=== PATIENT | male | born 1960 | race Caucasian/White ===

== ENCOUNTER → 2016-09-27 | Outpatient (CLI) | payer OTHER ==
--- NOTE | 2016-09-28 00:53 | US ---
EXAMINATION TYPE: US carotid duplex BILAT DATE OF EXAM: 09/27/2016 3:24 PM COMPARISON: NONE CLINICAL HISTORY: 56-year-old male R42 Dizziness and giddiness. TECHNIQUE: Carotid duplex ultrasound examination. In direct upper criteria was utilized. FINDINGS: Very mild atherosclerotic changes are noted at the bifurcations. EXAM MEASUREMENTS: RIGHT: Peak Systolic Velocity (PSV) cm/sec ----- Right CCA: 104.0 ----- Right ICA: 82.3 ----- Right ECA: 133.4 ICA/CCA ratio: 0.8 RIGHT: End Diastole cm/sec ----- Right CCA: 37.2 ----- Right ICA: 31.4 ----- Right ECA: 31.7 LEFT: Peak Systolic Velocity (PSV) cm/sec ----- Left CCA: 110.6 ----- Left ICA: 96.0 ----- Left ECA: 128.6 ICA/CCA ratio: 0.9 LEFT: End Diastole cm/sec ----- Left CCA: 40.5 ----- Left ICA: 45.8 ----- Left ECA: 41.3 VERTEBRALS (direction of flow): Right Vertebral: Antegrade Left Vertebral: Antegrade Submarine Worker notes: Elevated velocities: right mid ECA and left mid ECA, no significant stenosis seen. IMPRESSION: No hemodynamically significant stenosis appreciated in either internal carotid artery. Criteria for Assigning % of Stenosis / Diameter reduction (Estimation based on the indirect measurements of the internal carotid artery velocities (ICA PSV). 1. Normal (no stenosis)=ICA PSV < 125 cm/s: ratio < 2.0: ICA EDV<40 cm/s. 2. Less than 50% stenosis=ICA PSV < 125 cm/s: ratio < 2.0: ICA EDV<40 cm/s. 3. 50 to 69% stenosis=ICA PSV of 125 to 230 cm/s: ration 2.0 ? 4.0: ICA EDV 40-100 cm/s. 4. Greater than 70% stenosis to near occlusion= ICA PSV > 230 cm/s: ratio > 4.0: ICA EDV > 100 cm/s. 5. Near occlusion= ICA PSV velocities may be low or undetectable: variable ratio and ICA EDV. 6. Total occlusion=unable to detect flow.
== END | disposition home or self-care (01) ==
LOC: RADUSWWP 15:02
PROVIDERS: ATTEND Family Medicine
DX: R42 Dizziness and giddiness (principal)
CPT/HCPCS: 93880

== ENCOUNTER → 2019-02-15 | Outpatient (CLI) | payer OTHER ==
--- NOTE | 2019-02-16 15:47 | CT ---
EXAMINATION TYPE: CT chest wo/w con DATE OF EXAM: 02/15/2019 COMPARISON: None HISTORY: Lump to right axillary region CT DLP: 561.5 mGycm, Automated exposure control for dose reduction was used. CONTRAST: Performed injected with 100 mL of Isovue 300. TECHNIQUE: Axial images were obtained at 5 mm thick sections. Reconstructed images are reviewed on Sightly computer in the coronal plane. FINDINGS: Portion of the thyroid visualized is normal. There is a 2.7 x 1.9 cm lobular density posterior lateral superior segment right lower lobe. Series 7 image 37. No enlarged mediastinal or hilar adenopathy is evident. The ascending aorta diameter at the level o f the main pulmonary artery is 3.4 cm. The main pulmonary artery diameter at the bifurcation is 2.[address] sections are obtained through the upper abdomen. Abdomen is essentially unremarkable. IMPRESSIONS: 1. Suspicious lobular density superior segment right lower lobe. PET CT recommended for neoplasm work up.
== END | disposition home or self-care (01) ==
LOC: RADCTMAIN 16:03
PROVIDERS: ATTEND Physician Assistant Medical
DX: J98.4 Other disorders of lung (principal); R22.31 Localized swelling, mass and lump, right upper limb
CPT/HCPCS: 71270; Q9967

== ENCOUNTER → 2019-03-17 | Outpatient (CLI) | payer OTHER ==
--- NOTE | 2019-03-20 07:03 | PE ---
EXAMINATION TYPE: PET CT fusion skull to thigh DATE OF EXAM: 03/17/2019 COMPARISON: Chest CT February 15, 2019. HISTORY: Abnormal CT, solitary pulmonary nodule. TECHNIQUE: Following the intravenous administration of 12.92 mCi of F-18 FDG, whole body images are performed from the skull base to the midthigh. Images are reviewed on the computer in the coronal, a xial, and sagittal planes. Reconstructed rotating images are created on independent workstation and reviewed on the computer. A noncontrast CT is performed in conjunction with the PET scan. SCAN: Initial Scan FINDINGS: SKULL BASE AND NECK: No areas of suspicious hypermetabolic uptake. CHEST, MEDIASTINUM, AND HILAR REGION: Corresponding to recent CT there is lobulated nodule superior a spect right lower lobe image 106 measuring 2.3 x 1.9 cm, max SUV is 4.89. No additional areas of suspicious hypermetabolic uptake in either lung or in the mediastinum. ABDOMEN AND PELVIS: No areas of suspicious hypermetabolic uptake. No adrenal masses. OSSEOUS STRUCTURES: No areas of suspicious hypermetabolic uptake. OTHER CT: There is anterior upper extremity intramuscular lesion of predominantly fat density with so me soft tissue linear density measuring 5.7 x 4.0 cm axial image 47 there is ametabolic, suspect intr amuscular lipoma or other nonaggressive etiology. Local mass effect due to size of lesion noted. Cons ider orthopedic referral. There is 2.8 cm simple appearing exophytic thin-walled cyst laterally upper pole left kidney axial im age 89. Some facet arthropathy lower lumbar spine is present. IMPRESSION: There is hypermetabolic uptake in the superior right lower lobe nodule worrisome for albino gnancy. No suspicious adenopathy. No metastatic malignancy noted. TNM STAGING - [id number] AJCC STAGING -STAGE I
== END ==
LOC: RADPETMAIN 11:41
PROVIDERS: ATTEND Physician Assistant Medical
DX: R91.8 Other nonspecific abnormal finding of lung field (principal)
CPT/HCPCS: 78815; A9552

== ENCOUNTER 2019-05-04 09:49 | Day surgery (SDC) | payer OTHER ==
[2019-05-03 11:23] VITALS: BMI 25.9
[~2019-05-04 09:49] MED LIST: ALBUTEROL NEB (CONC) 2.5 MG/0.5 ML INHALATION ONE; DEXAMETHASONE SOD PHOSPHATE 10 MG/ML 1 ML VIAL IV ONE; HYDROmorphone 0.5 MG/0.5 ML SYRINGE IVP PRN; LACTATED RINGERS 1,000 ML IV SCH; LIDOCAINE 2% (PF) 20 MG/ML 5 ML VIAL INHALATION ONE; LIDOCAINE VISCOUS 300 MG/15 ML CUP MUCOUS MEM ONE; MIDAZOLAM 2 MG/2 ML VIAL IV PRN; ONDANSETRON 4 MG/2 ML VIAL IVP ONE; SCOPOLAMINE 1.5MG/72HR PATCH TRANSDERM ONE; SODIUM CHLORIDE 0.9% 1,000 ML IV SCH
--- NOTE | 2019-05-04 11:22 | CT ---
EXAMINATION TYPE: CT Chest giulia Macdonald Protocol DATE OF EXAM: 05/04/2019 COMPARISON: PET/CT dated 03/17/2019 HISTORY: pre navigational bronch CT DLP: [address] of the chest was performed with lung and mediastinal window settings submitted. The la ck of contrast limits evaluation of the vascular, mediastinal and parenchymal structures including th e upper abdomen. LUNGS: Right lower lobe pulmonary mass is redemonstrated and measures 3 cm x 2.1 cm. There is surroun ding spiculation as well as pleural extension. No additional lung nodules or masses are seen. No evid ence of pleural effusion. No pleural effusion. No CT evidence of interstitial lung disease. MEDIASTINUM/KHANH: Thoracic aorta is of normal caliber with limited evaluation given lack of contrast . The heart is not enlarged. No evidence for mediastinal mass. No lymph nodes greater than 1cm. UPPER ABDOMEN: No significant abnormality is seen. OTHER: No significant other abnormality. IMPRESSION: 1. Right lower lobe pulmonary mass is redemonstrated and felt to reflect malignancy until proven oth erwise. No evidence for adenopathy within the hilar or mediastinal regions.
[2019-05-04] MEDS ORDERED: MIDAZOLAM 2 MG/2 ML VIAL ONE (12:12)
[2019-05-04] MEDS ORDERED: PROPOFOL 10 MG/ML 20 ML VIAL IV ONE (12:12)
[2019-05-04] MEDS ORDERED: SUCCINYLCHOLINE CHLORIDE 100 MG/5 ML SYR IV ONE (12:12)
[2019-05-04] MEDS ORDERED: fentaNYL (PF) 50 MCG/ML 2 ML AMP ONE (12:12)
[2019-05-04] MEDS ORDERED: PHENYLEPHRINE-0.9% NACL SYG 1 MG/10 ML SYRINGE ONE (12:12)
[2019-05-04] MEDS ORDERED: LIDOCAINE 1% INJ 10MG/ML (20 ML MDV) ONE (12:12)
[2019-05-04] MEDS ORDERED: LACTATED RINGERS 1,000 ML IV ONE (13:13)
[2019-05-04 13:38] VITALS: TEMP 96.8
--- NOTE | 2019-05-04 13:54 | XR ---
EXAMINATION TYPE: XR chest 1V portable DATE OF EXAM: 05/04/2019 COMPARISON: CT chest 05/04/2019 INDICATION: Status post right lower lobe biopsy TECHNIQUE: Single frontal view of the chest is obtained. FINDINGS: The heart size is normal. The pulmonary vasculature is normal. Right lower lobe infiltrate is present. No pneumothorax is evident. IMPRESSION: 1. Right lower lobe infiltrate. No pneumothorax post biopsy is identified
[2019-05-04 15:17] VITALS: BP 100/62; PULSE 78; RESP 20
[2019-05-04 16:46] LABS: Appearance,BF Bloody; Color,BF Red; Nucleated Cells, Body Fluid 2100 /uL; RBC, Body Fluid 302000 /uL
--- NOTE | 2019-05-04 16:47 | OP ---
OPERATIVE REPORT OPERATIVE PROCEDURE: Navigational bronchoscopy, multiple transbronchial biopsies of the right lower lobe mass, brushings of right lower lobe mass and fine-needle aspiration of right lower lobe mass. PREOPERATIVE DIAGNOSIS: Right lower lobe mass. POSTOPERATIVE DIAGNOSIS: Right lower lobe mass. ANESTHESIA USED: Patient was given general anesthesia and he was on mechanical ventilation during the procedure. PROCEDURE DESCRIPTION: The patient was prepared according to the [facility] navigational bronchoscopy protocol. The patient had his [facility] navigational CT scan of the chest earlier today prior to the procedure. We performed lung mappings and discussed with the patient the plan prior to the procedure. The patient was brought into endoscopy room #1. He was intubated by HAT TRIMMER, placed on mechanical ventilation, and thorough airway examination was done while he was intubated. Right upper lobe, right upper lobe, right lower lobe, left upper lobe lingula and left lower lobe were all examined and there was no evidence of any endobronchial tumors. Then calibration was done by calibrating to the main neal and calibrating to the left secondary neal. Further calibration was also done by going down to the right lower lobe distal segments. Then, using the navigational protocol and using the navigational monitoring, I was able to enter the superior segment of the right lower lobe and navigate all the way down with the bronchoscope and with the biopsy forceps until the right lower lobe mass was reached peripherally. Multiple transbronchial biopsies of the mass were done. Then brushings of the mass were done; and these were all done under navigational guidance. Then multiple fine-needle aspirations were done of the right lower lobe mass. Procedure was well tolerated. There was minimal amount of bleeding/negligible. The patient tolerated the procedure well. Patient will have a postoperative chest x-ray and he will likely be discharged home in the next couple of hours. He will follow up with me in one week. Again, no evidence of any immediate complications. Procedure was well tolerated. MMODL / IJN: [id number] /
[2019-05-04 17:10] LABS: Mononuclear WBC,Body Fluid 38 %; Polynuclear WBC,Body Fluid 62 %; Total Cells Counted,Body Fluid 100
== END 2019-05-04 15:19 | disposition home or self-care (01) ==
LOC: ORWHC2ENDO 09:49
PROVIDERS: ATTEND Internal Medicine
DX: R91.8 Other nonspecific abnormal finding of lung field (principal); J60 Coalworker's pneumoconiosis; M48.00 Spinal stenosis, site unspecified; M50.30 Other cervical disc degeneration, unspecified cervical region; M15.9 Polyosteoarthritis, unspecified; Z79.1 Long term (current) use of non-steroidal anti-inflammatories (NSAID); Z79.899 Other long term (current) drug therapy; F17.210 Nicotine dependence, cigarettes, uncomplicated; G89.29 Other chronic pain; Z98.1 Arthrodesis status
CPT/HCPCS: 88104; 88108; 88305; 88173; 89050; 87070; 87205; 71045; 71250; 31629; 31623; 31627; J2250; J1100; J2405; J2001; J3010; J2370; J0330; J2704; 31624; 31625

== ENCOUNTER → 2019-06-06 | Outpatient (CLI) | payer OTHER ==
[~2019-06-06] MED LIST changes: -ALBUTEROL NEB (CONC) 2.5 MG/0.5 ML INHALATION ONE; -DEXAMETHASONE SOD PHOSPHATE 10 MG/ML 1 ML VIAL IV ONE; -HYDROmorphone 0.5 MG/0.5 ML SYRINGE IVP PRN; -LACTATED RINGERS 1,000 ML IV SCH; -LIDOCAINE 2% (PF) 20 MG/ML 5 ML VIAL INHALATION ONE; -LIDOCAINE VISCOUS 300 MG/15 ML CUP MUCOUS MEM ONE; -MIDAZOLAM 2 MG/2 ML VIAL IV PRN; -ONDANSETRON 4 MG/2 ML VIAL IVP ONE; +REGADENOSON 0.4 MG/5 ML SYRINGE IV ONE; -SCOPOLAMINE 1.5MG/72HR PATCH TRANSDERM ONE; -SODIUM CHLORIDE 0.9% 1,000 ML IV SCH
--- NOTE | 2019-06-06 11:05 | NM ---
EXAMINATION TYPE: NM stress lexiscan cardiolite DATE OF EXAM: 06/06/2019 COMPARISON: NONE HISTORY: Chest pain TECHNIQUE: After the intravenous administration of 10.89 mCi Tc 99m Sestamibi - Cardiolite resting S PECT images acquired 45 minutes post injection. The patient received 0.4mg Lexiscan, 26.5 mCi Tc 99m Sestamibi - Stress images obtained [address] injection FINDINGS: Review of stress and rest SPECT images demonstrates no distinct perfusion abnormality. Gated analysi s shows normal wall motion with an estimated left ventricular ejection fraction of 66 %. IMPRESSION: No scintigraphic evidence for reversible ischemia.
--- NOTE | 2019-06-06 13:22 | EST ---
EXERCISE STRESS DATE OF SERVICE: 06/06/2019 AGE: 58 SEX: Male HT: 67" WT: 176 pounds PROTOCOL: Lexiscan Cardiolite STAGE: DURATION OF EXERCISE: HEART RATE REST: 94 BLOOD PRESSURE REST: 159/89 MAXIMUM HEART RATE ACHIEVED: 92 MAXIMUM BLOOD PRESSURE: 140/82 85% MPHR: 138 100% MPHR: 162 METS: INDICATIONS: Pre-op. CLINICAL INFORMATION: The patient was given Lexiscan injection over a period of 10 seconds. A peak heart rate of 92 was achieved. Maximum blood pressure of 140/82 mmHg was noted. Resting EKG shows normal sinus rhythm with normal VA interval and QRS duration and normal ST-T waves. No ST-segment depression suggestive of ischemia was noted. The results of the nuclear study will follow. LIGIA / ASH: [id number] /
== END | disposition home or self-care (01) ==
LOC: RADNMMAIN 08:02
PROVIDERS: ATTEND Thoracic Surgery (Cardiothoracic Vascular Surgery)
DX: Z01.818 Encounter for other preprocedural examination (principal)
CPT/HCPCS: 93017; 78452; A9500

== ENCOUNTER → 2019-07-20 | Outpatient (CLI) | payer OTHER ==
[2019-07-20 14:50] LABS: Basophils % (A) 0 %; Eosinophils # (A) 0.1 k/uL (0-0.7); Eosinophils % (A) 1 %; HCT 43.8 % (39.0-53.0); HGB 14.4 gm/dL (13.0-17.5); Lymphocytes # (A) 2.3 k/uL (1.0-4.8); Lymphocytes % (A) 32 %; MCH 28.1 pg (25.0-35.0); MCV 85.3 fL (80.0-100.0); Mean Platelet Volume 7.1; Monocytes # (A) 0.4 k/uL (0-1.0); Monocytes % (A) 5 %; Neutrophils # (A) 4.3 k/uL (1.3-7.7); Neutrophils % (A) 59 %; Platelet Count 273 k/uL (150-450); RBC 5.13 m/uL (4.30-5.90); RDW 13.4 % (11.5-15.5); WBC 7.2 k/uL (3.8-10.6)
[2019-07-20 14:51] LABS: Appearance,Urine Clear (Clear); Bilirubin,Urine Negative (Negative); Blood,Urine Negative (Negative); Color,Urine Light Yellow; Glucose,Urine (UA) Negative (Negative); Ketones,Urine Negative (Negative); Leukocyte Esterase,Urine Negative (Negative); Nitrite,Urine Negative (Negative); Protein,Urine Negative (Negative); Specific Gravity,Urine 1.004 (1.001-1.035); Urobilinogen,Urine <2.0 mg/dL (<2.0)
[2019-07-20 14:57] LABS: African American GFR (CKD) >90 (>60 ml/min/1.73 sqM); Anion Gap 9 mmol/L; Blood Urea Nitrogen 6 mg/dL (9-20); Carbon Dioxide 25 mmol/L (22-30); Chloride 100 mmol/L (98-107); Glucose 88 mg/dL (74-99); Non-African American GFR(CKD) >90 (>60 ml/min/1.73 sqM); Partial Thromboplastin Time 25.5 sec (22.0-30.0); Potassium 4.4 mmol/L (3.5-5.1); Prothrombin Time 10.1 sec (9.0-12.0); Sodium 134 mmol/L (137-145)
== END | disposition home or self-care (01) ==
LOC: LABPAT 13:13
PROVIDERS: ATTEND Family Medicine
DX: Z01.812 Encounter for preprocedural laboratory examination (principal); C34.31 Malignant neoplasm of lower lobe, right bronchus or lung
CPT/HCPCS: 36415; 80051; 81003; 82565; 82947; 84520; 85025; 85610; 85730; 87086

== ENCOUNTER 2019-07-26 09:19 | Inpatient (IN) | payer OTHER ==
[2019-07-24 16:44] VITALS: BMI 26.7
[~2019-07-26 09:19] MED LIST changes: +DEXAMETHASONE SOD PHOSPHATE 10 MG/ML 1 ML VIAL IV ONE; +LACTATED RINGERS 1,000 ML IV SCH; +LIDOCAINE 1% (10MG/ML) FOR IV START INTRADERMA PRN; +ONDANSETRON 4 MG/2 ML VIAL IVP ONE; -REGADENOSON 0.4 MG/5 ML SYRINGE IV ONE
[2019-07-26] MEDS ORDERED: MIDAZOLAM 2 MG/2 ML VIAL IV ONE (10:40)
[2019-07-26] MEDS ORDERED: fentaNYL (PF) 50 MCG/ML 2 ML AMP IV ONE (10:40)
[2019-07-26] MEDS ORDERED: ROCURONIUM BROMIDE 10 MG/ML 5 ML VIAL IV ONE (11:35)
[2019-07-26] MEDS ORDERED: HYDROmorphone (PF) 1 MG/ML ONE (11:35)
[2019-07-26] MEDS ORDERED: GLYCOPYRROLATE 0.2 MG/ML 2 ML VIAL ONE (11:35)
[2019-07-26] MEDS ORDERED: METOPROLOL TARTRATE 5 MG/5 ML VIAL IVP ONE (11:35)
[2019-07-26] MEDS ORDERED: fentaNYL (PF) 50 MCG/ML 2 ML AMP ONE (11:35)
[2019-07-26] MEDS ORDERED: KETAMINE 10 MG/ML 20 ML VIAL ONE (11:35)
[2019-07-26] MEDS ORDERED: LIDOCAINE 1% INJ 10MG/ML (20 ML MDV) ONE (11:35)
[2019-07-26] MEDS ORDERED: SUCCINYLCHOLINE CHLORIDE 100 MG/5 ML SYR IV ONE (11:35)
[2019-07-26] MEDS ORDERED: MIDAZOLAM 2 MG/2 ML VIAL ONE (11:35)
[2019-07-26] MEDS ORDERED: NEOSTIGMINE 1 MG/ML 10 ML VIAL ONE (11:35)
[2019-07-26] MEDS ORDERED: PROPOFOL 10 MG/ML 20 ML VIAL IV ONE (11:35)
[2019-07-26] MEDS ORDERED: BUPIVACAINE (PF) 0.5% 30 ML VIAL SQ ONE ×2 (12:23)
[2019-07-26] MEDS ORDERED: LACTATED RINGERS 1,000 ML IV ONE (13:06)
--- NOTE | 2019-07-26 14:58 | P.OP ---
Date of Procedure: 07/26/19 Preoperative Diagnosis: Lung mass right lower lobe Postoperative Diagnosis: Same, grossly consistent with carcinoma Procedure(s) Performed: Robotic-assisted thoracoscopic right lower lobectomy with mediastinal lymph node dissection Anesthesia: JOSSELYN Surgeon: Tommy Bruno Functional Consultant #1: Byron Jacobson Estimated Blood Loss (ml): 50 IV fluids (ml): 1,000 Urine output (ml): 500 Pathology: other (Right lower lobe for bronchial margin frozen section,\; lymph node stations R4, level 7, R8, R9, R 10, R 11) Condition: stable Disposition: PACU Indications for Procedure: 58-year-old male with stellate mass in the right lower lobe. This was positive by PET scan. There was no evidence of metastasis by CT or PET criteria. Bronchoscopy and SHEILA were performed. Lymph nodes were negative. Diagnostic biopsy of the tumor was nondiagnostic. Patient was recommended to undergo lobectomy. He was given the choice of CT follow-up which was not recommended versus wedge resection versus peripheral needle biopsy. He opted for primary surgery with lobectomy. Elective surgery was scheduled at the patient's convenience. Operative Findings: Pleural space was free. The fissures were nearly complete. There was a partial fissure between the superior segment and basal segments of the right lower lobe. The tumor was present in the lower lobe portion of the lung adjacent to this segmental fissure. The tumor puckered the overlying pleura of the segmental fissure. Mediastinal and hilar lymphadenopathy was present with marketed anthracotic adenopathy and significant vascularity of the lymph nodes. Frozen section of bronchial margin returned negative. Pathology agreed that the mass in the lung was certainly a lung malignancy although they did not do a frozen section. Description of Procedure: The patient was brought to the operating room, placed supine on the operating table, anesthetized and intubated with a double-lumen endotracheal tube. Tube w as positioned with fiberoptic bronchoscopy and secured. No endobronchial lesions were noted. Patient was turned in the left lateral decubitus position and appropriately positioned for robotic lobectomy. The right chest was sterilely prepped and draped. 4 port incisions were made for robotic ports. A 8 mm port was placed in the anterior axillary line in the ninth interspace. A 12 mm ports were placed anteriorly posterior to this in the eighth and ninth interspace respectively. Second 8 mm port was placed in the fifth interspace posteriorly. The robot was docked. Pleural robotic inspection of the chest was performed. Some dissection was carried out in the greater fissure but we could not complete the fissure robotically at this stage. Inferior pulmonary ligament was taken down. R9 lymph nodes were encountered resected and sent for permanent section. Dissection was carried up onto the inferior pulmonary vein. This was encircled and ligated and divided with a robotic stapler. Dissection was continued posteriorly and the R8 and R7 lymph nodes were resected. Dissection was now carried anterior to the bronchus intermedius and the interval between the takeoff of the upper lobe bronchus and bronchus intermedius was dissected out. There were lymph nodes present here but they were difficult to resect. Was decided to move down inferiorly. Dissection was carried on the distal bronchus intermedius and the bifurcation between the middle lobe bronchus and basilar bronchi was identified. Was a large vascularized lymph node present in this bifurcation. Dissection was carried around the lower lobe bronchial and we encircled it successfully. It was then stapled off with a robotic green stapler being careful to maintain the bronchus intermedius and middle lobe bronchial patency. 2 firings of the stapler were required. We now continued dissection and removed a large number of R 11 lymph nodes. This exposed the pulmonary artery leading to the lower lobe. The superior segmental branch was identified. The middle lobe artery was identified. The main trunk of the lower lobe artery was encircled distal to the middle lobe branch and proximal to the superior segme ntal branch. This was then ligated and divided with a single firing of a robotic vascular stapler. We completed the dissection of the hilar lymph nodes at this time and then completed the fissures with multiple firings of the robotic blue stapler. Lobectomy specimen was then placed in an Endo Catch bag. Dissection was carried up at the superior aspect of the hilum and the R 10 and R4 lymph nodes were resected. At this point the robot was undocked. A working port was enlarged and the specimen was brought through the enlarged working port incision in the Endo Catch bag. Was examined on the back table with findings as noted above and sent for frozen section of the bronchial margin which returned negative. The chest was irrigated out with a liter of warm water. The lung was inflated under direct vision with the water and the chest and no significant air leaks were noted. Water was suctioned free and a 28-Angolan chest tube was placed posterior apically through separate anterior stab incision. This was secured with an 0 Ethibond suture. The lung was then again inflated under thoracoscopic visualization being certain to completely eliminate only atelectasis. Scope was removed and the incisions were closed with layers of Vicryl suture. Rib blocks were performed at the level of the incisions posteriorly with half percent Marcaine. Band-Aid dressings were applied and the patient was turned supine and extubated and transferred to recovery in stable condition.
[2019-07-26] MEDS: HYDROmorphone 0.5 MG/0.5 ML SYRINGE IVP PRN ×3 (15:13→16:14)
--- NOTE | 2019-07-26 15:30 | XR ---
EXAMINATION TYPE: XR chest 1V portable DATE OF EXAM: 07/26/2019 COMPARISON: NONE HISTORY: Right-sided lobectomy. TECHNIQUE: Single frontal view of the chest is obtained. FINDINGS: Patient is status post right-sided lobectomy with right thoracostomy tube placed terminati ng along the medial aspect of the upper mediastinum. No residual pneumothorax seen. Slight hemidiaphr agm elevation of the right from volume loss. Subcutaneous emphysema noted along the inferior right ch est wall. Left lung has minimal left basal atelectasis. Cervical fusion device noted. IMPRESSION: Right hemithorax loss and subcutaneous emphysema from recent right lobectomy. Thoracosto my tube in place with no residual pneumothorax.
[2019-07-26] MEDS ORDERED: IPRATROPIUM-ALBUTEROL 3 ML NEB IH PRN (16:26)
[2019-07-26] MEDS ORDERED: DEXTROSE 5%-0.45% NACL 1,000 ML IV SCH (16:26)
[2019-07-26] MEDS ORDERED: ACETAMINOPHEN TAB 500 MG TAB PO PRN (16:26)
[2019-07-26] MEDS ORDERED: ONDANSETRON 4 MG/2 ML VIAL IVP PRN (16:26)
[2019-07-26 16:58] LABS: Glucose,Whole Blood 144 mg/dL (75-99)
[2019-07-26] MEDS: IPRATROPIUM-ALBUTEROL 3 ML NEB IH SCH ×2 (17:13→18:59)
[2019-07-26] MEDS: GABAPENTIN 300 MG CAP PO SCH ×2 (17:17→21:31)
[2019-07-26] MEDS: traMADol 50 MG TAB PO SCH ×2 (17:17→21:32)
[2019-07-26] MEDS: KETOROLAC 30 MG/ML 1 ML VIAL IVP SCH ×2 (17:19→21:32)
[2019-07-26] MEDS: HEPARIN SODIUM,PORCINE 5,000 UNIT/ML 1 ML VIAL SQ SCH (17:19)
--- NOTE | 2019-07-26 18:08 | P.CNPUL ---
History of Present Illness Consult date: 07/26/19 Reason for consult: lung mass Chief complaint: Robotically assisted right lower lobe resection History of present illness: This is a 58-year-old male patient with MS in the right lower lobe. The mass was positive for a CAT scan that was done on outpatient basis. He had no evidence of any metastases based on PET scan.. Bronchoscopy was done and it biopsy was nondiagnostic. Based on that, the patient was brought in for a right lower lobe resection/lobectomy. The patient underwent the surgery without any major complications. Currently is postop day #0. This was a robotic-assisted thoracoscopy and right lower lobe resection with lymph node dissection. Currently his chest x-ray shows no evidence of any pneumothorax. The right- sided chest tube is in a good location. There is no evidence of any air leak. Output from the chest tube has been minimal in the order of 150 mL since he arrived from the operating room. His pain is under good control. His pulse ox is 97% on oxygen at 2 L per minute nasal cannula. Note that the patient had a 2.3 x 1.9 cm right lower lobe mass with a possibility of 4.89 his primary function test was consistent with only a mild obstructive defect. Review of Systems Constitutional: Denies chills, Denies fever Eyes: denies as per HPI, denies blurred vision, denies bulging eye, denies decreased vision, denies diplopia, denies discharge, denies dry eye, denies irritation, denies itching, denies pain, denies photophobia, denies loss of peripheral vision, denies loss of vision, denies tunnel vision/blind spots Ears: deny: decreased hearing, ear discharge, earache, tinnitus Ears, nose, mouth and throat: Denies headache, Denies sore throat Cardiovascular: Reports as per HPI Respiratory: Reports as per HPI Gastrointestinal: Reports as per HPI Genitourinary: Reports as per HPI Musculoskeletal: Reports as per HPI Musculoskeletal: absent: ankle pain, ankle stiffness, ankle swelling, as per HPI, elbow pain, elbow stiffness, elbow swelling, foot pain, foot stiffness, foot swelling, hand pain, hand stiffness, hand swelling, hip pain, hip stiffness, hip swelling, knee pain, knee stiffness, knee swelling, shoulder pain, shoulder stiffness, shoulder swelling, wrist pain, wrist stiffness, wrist swelling Integumentary: Reports as per HPI Neurological: Reports as per HPI Psychiatric: Reports as per HPI Endocrine: Reports as per HPI Hematologic/Lymphatic: Reports as per HPI Allergic/Immunologic: Reports as per HPI Past Medical History Past Medical History: Musculoskeletal Disorder, Osteoarthritis (OA) Additional Past Medical History / Comment(s): spot on right lung, neuropathy & numbness in extremities, bulging lumbar discs History of Any Multi-Drug Resistant Organisms: None Reported Additional Past Surgical History / Comment(s): cervical fusion, bronchoscopy Past Anesthesia/Blood Transfusion Reactions: Previous Problems w/ Anesthesia Additional Past Anesthesia/Blood Transfusion Reaction / Comment(s): was a bit slow to wake up after neck surgery Smoking Status: Current every day smoker Medications and Allergies Home Medications Medication Instructions Recorded Confirmed Type Amitriptyline HCl [Elavil] 25 mg PO BID 05/03/19 07/24/19 History Gabapentin [Neurontin] 900 mg PO TID 05/03/19 07/24/19 History Ibuprofen [Motrin] 800 mg PO Q8H PRN 07/24/19 07/24/19 History Allergies Allergy/AdvReac Type Severity Reaction Status Date / Time bee venom protein (honey bee) Allergy Swelling Verified 07/24/19 16:39 Physical Exam Vitals: Vital Signs Temp Pulse Resp BP Pulse Ox 07/26/19 17:15 88 14 140/93 100 07/26/19 16:50 88 14 07/26/19 16:40 97.5 F L 80 14 136/85 100 07/26/19 16:15 72 16 127/64 92 L 07/26/19 16:00 74 16 157/84 92 L 07/26/19 15:31 72 16 151/81 100 07/26/19 15:15 71 16 151/81 97 07/26/19 15:00 79 16 169/78 100 07/26/19 14:50 98.1 F 75 14 164/89 100 07/26/19 09:51 97 F L 69 20 141/80 97 Intake and Output 07/26/19 07/26/19 07/26/19 06:59 14:59 22:59 Intake Total 1350 570 Output Total 355 166 Balance 995 404 Intake: IV 1350 10 Invasive Line 1 10 Oral 560 Output: Chest Tube Drainage 66 Chest Tube Right Lateral 66 Chest Urine 325 100 Uretheral ([place]) 100 Estimated Blood Loss 30 Other: Voiding Method Indwelling Catheter Weight 72.9 kg The patient appeared well nourished and normally developed. Vital signs as documented. Head exam is unremarkable. No scleral icterus or corneal arcus noted. Neck is without jugular venous distension, thyromegaly, or carotid bruits. Carotid upstrokes are brisk bilaterally. Lungs are diminished breath on the right compared to the left and the chest tube are in place without any evidence of a leak. Cardiac exam reveals the PMI to be normally sized and situated. Rhythm is regular. First and second heart sounds normal. No murmurs, rubs or gallops. Abdominal exam reveals normal bowel sounds, no masses, no organomegaly and no aortic enlargement. Extremities are nonedematous and both femoral and pedal pulses are normal.Examination of the skin revealed no evidence of significant rashes, suspicious appearing nevi or other concerning lesions. Neurologically awake and alert and is no focal neurological deficit. Results - Laboratory Findings Abnormal lab findings: Abnormal Labs 07/26/19 16:42 POC Glucose (mg/dL) 144 H - Diagnostic Findings Chest x-ray: image reviewed Assessment and Plan Plan: 1 Right lower lobe mass close robotic-assisted right lower lobe resection with mediastinal lymph node dissection, postoperative day #0. The patient is calm and comfortable and the patient is under good control and the patient has a right-sided chest tube in place. No evidence of any air leak and the patient is hemodynamically stable at this point in time. Consider underlying lung cancer 2 spinal stenosis 3 osteoarthritis Plan Provide the patient incentive spirometer Pain control with a combination of Toradol and Ultram Daily chest x-rays Resume home medications we'll continue to follow.
[2019-07-26] MEDS: AMITRIPTYLINE HCL 25 MG TAB PO SCH (21:31)
[2019-07-27] MEDS: HEPARIN SODIUM,PORCINE 5,000 UNIT/ML 1 ML VIAL SQ SCH ×4 (02:16→22:10)
[2019-07-27] MEDS: KETOROLAC 30 MG/ML 1 ML VIAL IVP SCH ×4 (05:44→22:09)
[2019-07-27] MEDS: traMADol 50 MG TAB PO SCH ×4 (05:46→22:08)
[2019-07-27] MEDS: PANTOPRAZOLE 40 MG TABLET PO SCH (05:48)
--- NOTE | 2019-07-27 07:38 | XR ---
EXAMINATION TYPE: XR chest 1V DATE OF EXAM: 07/27/2019 COMPARISON: 07/26/2019 HISTORY: Status post lobectomy. Follow-up exam. TECHNIQUE: Single frontal view of the chest is obtained. FINDINGS: Right-sided thoracostomy tube again projects over the mediastinal border. Subcutaneous emp hysema remains along the lateral chest wall. No residual pneumothorax seen. Right-sided volume loss i s again noted. Scattered areas of atelectasis are present. Stable cardiac mediastinal silhouette. IMPRESSION: Similar placement of the right thoracostomy tube with no residual pneumothorax seen.
[2019-07-27 07:49] LABS: African American GFR (CKD) >90 (>60 ml/min/1.73 sqM); Anion Gap 9 mmol/L; Blood Urea Nitrogen 14 mg/dL (9-20); Calcium 8.9 mg/dL (8.4-10.2); Carbon Dioxide 24 mmol/L (22-30); Chloride 99 mmol/L (98-107); Glucose 94 mg/dL (74-99); Non-African American GFR(CKD) 89 (>60 ml/min/1.73 sqM); Potassium 4.1 mmol/L (3.5-5.1); Sodium 132 mmol/L (137-145)
[2019-07-27 07:52] LABS: Basophils % (A) 0 %; Eosinophils # (A) 0.1 k/uL (0-0.7); Eosinophils % (A) 1 %; Lymphocytes # (A) 1.9 k/uL (1.0-4.8); Lymphocytes % (A) 16 %; MCH 28.3 pg (25.0-35.0); MCHC 33.2 g/dL (31.0-37.0); MCV 85.4 fL (80.0-100.0); Mean Platelet Volume 7.2; Monocytes # (A) 0.5 k/uL (0-1.0); Monocytes % (A) 4 %; Neutrophils % (A) 77 %; Platelet Count 237 k/uL (150-450); RBC 4.57 m/uL (4.30-5.90); RDW 13.8 % (11.5-15.5); WBC 11.6 k/uL (3.8-10.6)
[2019-07-27] MEDS: IPRATROPIUM-ALBUTEROL 3 ML NEB IH SCH ×4 (08:17→20:10)
[2019-07-27] MEDS: AMITRIPTYLINE HCL 25 MG TAB PO SCH ×2 (08:22→20:33)
[2019-07-27] MEDS: GABAPENTIN 300 MG CAP PO SCH ×3 (08:22→20:33)
--- NOTE | 2019-07-27 13:36 | P.PN ---
Subjective Progress Note Date: 07/27/19 Principal diagnosis: Lung mass right lower lobe, consistent with carcinoma. Previous medical history of current tobacco dependence, COPD, osteoarthritis, and cervical disc disease with previous cervical fusion. POD #1 Robotic-assisted thoracoscopic right lower lobectomy with mediastinal lymph node dissection The patient is currently sitting up in a recliner in no acute distress. States post surgical pain is well controlled with current medication regimen. Denies shortness of breath. States he has been ambulatory in the hallway without difficulty. No new concerns. Objective - Vital Signs Vital signs: Vital Signs Temp 97.7 F 07/27/19 11:00 Pulse 93 07/27/19 11:54 Resp 18 07/27/19 11:27 BP 107/66 07/27/19 11:00 Pulse Ox 94 L 07/27/19 11:00 Intake & Output 07/26/19 07/27/19 07/27/19 18:59 06:59 18:59 Intake Total 2150 320 497 Output Total 551 740 244 Balance 1599 -420 253 Weight 72.9 kg 71.5 kg Intake: IV 1360 320 20 Invasive Line 1 10 320 20 Oral 790 477 Output: Chest Tube Drainage 96 140 244 Chest Tube Right Lateral 96 140 244 Chest Urine 425 600 Uretheral (De La Torre) 100 600 Estimated Blood Loss 30 Other: Voiding Method Indwelling Catheter Indwelling Catheter Urinal - Constitutional General appearance: Present: cooperative, no acute distress - Respiratory Details: Lungs sounds diminished bilaterally. Respirations even, nonlabored. Currently on room air with oxygen saturation 94%. Able to achieve 1000 mL on his incentive spirometry. Strong cough. Right pleural chest tube present to tammy erseal, 80 mL of thin serosanguineous drainage overnight 500 mL since surgery, positive intermittent air leak present. - Cardiovascular Details: S1, S2 present. Regular rate and rhythm, sinus rhythm on telemetry. Palpable peripheral pulses bilaterally. No edema present. No calf pain or tenderness noted. - Gastrointestinal Gastrointestinal Comment(s): Abdomen soft, nontender, nondistended. Hypoactive bowel sounds present 4 quadrants. Tolerating diet. - Genitourinary Genitourinary Comment(s): De La Torre discontinued this morning, patient has voided - Integumentary Integumentary Comment(s): Skin is warm and dry with evidence of good perfusion. Right chest tube site covered with dry intact dressing. - Neurologic Neurologic: Present: CNII-XII intact - Musculoskeletal Musculoskeletal: Present: gait normal, strength equal bilaterally - Psychiatric Psychiatric: Present: A&O x's 3, appropriate affect, intact judgment & insight - Allied health notes Allied health notes reviewed: nursing - Labs CBC & Chem 7: 07/27/19 07:04 07/27/19 07:04 Labs: Abnormal Lab Results - Last 24 Hours (Table) 07/26/19 07/27/19 07/27/19 Range/Units 16:42 07:04 07:04 WBC 11.6 H (3.8-10.6) k/uL Neutrophils # 9.0 H (1.3-7.7) k/uL Sodium 132 L (137-145) mmol/L POC Glucose (mg/dL) 144 H (75-99) mg/dL - Imaging and Cardiology Chest x-ray: report reviewed, image reviewed Assessment and Plan Assessment: 1. Lung mass right lower lobe, consistent with carcinoma, status post robotic- assisted thoracoscopic right lower lobectomy 2. Current tobacco dependence 3. COPD 4. Osteoarthritis 5. Cervical disk disease status post-cervical fusion Plan: 1. Continue right pleural chest tube to water seal for another 24 hours. Monitor for resolution of air leak. 2. Will review daily x-rays. 3. Encourage incentive spirometry 10 times every hour while awake. 4. Increase activity, encourage ambulation 5. Bronchodilators per pulmonology 6. GI/DVT prophylaxis 7. Pain control with current medication regimen 8. More recommendations to follow Time with Patient: Greater than 30
--- NOTE | 2019-07-27 14:46 | P.PN ---
Subjective Progress Note Date: 07/27/19 This is a 58-year-old male patient with MS in the right lower lobe. The mass was positive for a CAT scan that was done on outpatient basis. He had no evidence of any metastases based on PET scan.. Bronchoscopy was done and it biopsy was nondiagnostic. Based on that, the patient was brought in for a right lower lobe resection/lobectomy. The patient underwent the surgery without any major complications. Currently is postop day #0. This was a robotic-assisted thoracoscopy and right lower lobe resection with lymph node dissection. Currently his chest x-ray shows no evidence of any pneumothorax. The right- sided chest tube is in a good location. There is no evidence of any air leak. Output from the chest tube has been minimal in the order of 150 mL since he arrived from the operating room. His pain is under good control. His pulse ox is 97% on oxygen at 2 L per minute nasal cannula. Note that the patient had a 2.3 x 1.9 cm right lower lobe mass with a possibility of 4.89 his primary function test was consistent with only a mild obstructive defect. On today's evaluation of 07/27/2019, the patient is looking well. The patient has no specific complaints. The patient is sitting up on a chair. He is postop day #1 following a robotic-assisted thoracoscopic right lower lobe resection. Chest tube is in place. There is no evidence of any air leak. Chest x-ray from today shows no evidence of any pneumothorax. No pulmonary infiltration. The output from the chest tube has been around 80 mL over the past 8 hours and 500 mL since surgery. There is intermittent air leak still noted. Objective - Vital Signs Vital signs: Vital Signs Temp 97.7 F 07/27/19 11:00 Pulse 93 07/27/19 11:54 Resp 18 07/27/19 11:27 BP 107/66 07/27/19 11:00 Pulse Ox 94 L 07/27/19 11:00 Intake & Output 07/26/19 07/27/19 07/27/19 18:59 06:59 18:59 Intake Total 2150 320 737 Output Total 551 740 244 Balance 1599 -420 493 Weight 72.9 kg 71.5 kg Intake: IV 1360 320 20 Invasive Line 1 10 320 20 Oral 790 717 Output: Chest Tube Drainage 96 140 244 Chest Tube Right Lateral 96 140 244 Chest Urine 425 600 Uretheral (De La Torre) 100 600 Estimated Blood Loss 30 Other: Voiding Method Indwelling Catheter Indwelling Catheter Urinal - Exam The patient appeared well nourished and normally developed. Vital signs as documented. Head exam is unremarkable. No scleral icterus or corneal arcus noted. Neck is without jugular venous distension, thyromegaly, or carotid bruits. Carotid upstrokes are brisk bilaterally. Lungs are diminished breath on the right compared to the left and the chest tube are in place intermittent air leak. Cardiac exam reveals the PMI to be normally sized and situated. Rhythm is regular. First and second heart sounds normal. No murmurs, rubs or gallops. Abdominal exam reveals normal bowel sounds, no masses, no organomegaly and no aortic enlargement. Extremities are nonedematous and both femoral and pedal pulses are normal.Examination of the skin revealed no evidence of significant rashes, suspicious appearing nevi or other concerning lesions. Neurologically awake and alert and is no focal neurological deficit. - Labs CBC & Chem 7: 07/27/19 07:04 07/27/19 07:04 Labs: Abnormal Lab Results - Last 24 Hours (Table) 07/26/19 07/27/19 07/27/19 Range/Units 16:42 07:04 07:04 WBC 11.6 H (3.8-10.6) k/uL Neutrophils # 9.0 H (1.3-7.7) k/uL Sodium 132 L (137-145) mmol/L POC Glucose (mg/dL) 144 H (75-99) mg/dL Assessment and Plan Plan: 1 Right lower lobe mass close robotic-assisted right lower lobe resection with mediastinal lymph node dissection, postoperative day #1. The patient is calm and comfortable and the patient is under good control and the patient has a right-sided chest tube in place. The chest x-ray from today shows no evidence of any air leak and the chest tube is in a good location. The patient is not having any significant respiratory distress. His pulling more than 1000 on his incentive spirometer. No other significant events overnight. He is able to sit up on a recliner. Consider underlying lung cancer 2 spinal stenosis 3 osteoarthritis Plan Blood work was reviewed and hemoglobin is at 13.0. Provide the patient incentive spirometer Pain control with a combination of Toradol and Ultram Daily chest x-rays Resume home medications we'll continue to follow.
[2019-07-28] MEDS: traMADol 50 MG TAB PO SCH ×2 (06:13→12:46)
[2019-07-28] MEDS: KETOROLAC 30 MG/ML 1 ML VIAL IVP SCH ×3 (06:13→17:04)
[2019-07-28] MEDS: PANTOPRAZOLE 40 MG TABLET PO SCH (06:15)
[2019-07-28 07:17] LABS: HCT 39.9 % (39.0-53.0); MCHC 32.6 g/dL (31.0-37.0); MCV 85.9 fL (80.0-100.0); Mean Platelet Volume 7.2; Platelet Count 203 k/uL (150-450); RBC 4.64 m/uL (4.30-5.90); RDW 13.8 % (11.5-15.5); WBC 13.6 k/uL (3.8-10.6)
[2019-07-28 07:27] LABS: African American GFR (CKD) >90 (>60 ml/min/1.73 sqM); Anion Gap 10 mmol/L; Blood Urea Nitrogen 18 mg/dL (9-20); Calcium 8.9 mg/dL (8.4-10.2); Carbon Dioxide 22 mmol/L (22-30); Chloride 98 mmol/L (98-107); Glucose 117 mg/dL (74-99); Non-African American GFR(CKD) >90 (>60 ml/min/1.73 sqM); Potassium 4.4 mmol/L (3.5-5.1); Sodium 130 mmol/L (137-145)
--- NOTE | 2019-07-28 08:18 | XR ---
EXAMINATION TYPE: XR chest 2V DATE OF EXAM: 07/28/2019 COMPARISON: 07/27/2019 HISTORY: Status post right lower lobectomy TECHNIQUE: Frontal and lateral views of the chest are obtained. FINDINGS: Increasing left basilar linear atelectasis is seen. Increasing right basilar airspace dise ase. Right thoracostomy tube has been repositioned but appears overall appropriately placed. Right-si ded chest wall subcutaneous emphysema has increased. Cervical fusion device is seen. Cardiomediastina l silhouette is nonenlarged. Thorax seen. IMPRESSION: Increasing left basilar atelectasis and right basilar airspace disease, possible atelect asis as well or developing pneumonia.
[2019-07-28] MEDS: IPRATROPIUM-ALBUTEROL 3 ML NEB IH SCH ×4 (08:22→19:25)
[2019-07-28] MEDS: AMITRIPTYLINE HCL 25 MG TAB PO SCH ×2 (09:45→20:25)
[2019-07-28] MEDS: GABAPENTIN 300 MG CAP PO SCH ×3 (09:45→22:03)
[2019-07-28] MEDS: HEPARIN SODIUM,PORCINE 5,000 UNIT/ML 1 ML VIAL SQ SCH ×2 (09:45→17:04)
--- NOTE | 2019-07-28 13:30 | P.PN ---
Subjective Progress Note Date: 07/28/19 Principal diagnosis: Lung mass right lower lobe, consistent with carcinoma. Past medical history significant for current tobacco dependence, COPD, osteoarthritis, posttraumatic stress disorder from the and cervical disc disease with previous cervical fusion. POD #1 Robotic-assisted thoracoscopic right lower lobectomy with mediastinal lymph node dissection. The patient is laying in bed on the cardiac stepdown unit. He is in no acute distress. Currently denies any complaints of pain or shortness of breath, although he does have some slight discomfort when taking deep breaths or coughing. Oxygen saturations are 97% on room air and he is achieving 500-750 mL on his incentive spirometry with encouragement. He reports he did not sleep very well last night and was sitting up to bedside chair for most of the night. Right pleural chest tube remains in place to water seal. No air leak is present. Draining thin serosanguineous drainage with 100 mL output in the last 8 hours, and 320 mL output in the last 24 hours. He has been ambulating in the cardiac stepdown unit hallway with minimal assistance from nursing staff. Surgical pathology results remain pending. Objective - Vital Signs Vital signs: Vital Signs Temp 98.8 F 07/28/19 04:00 Pulse 88 07/28/19 04:00 Resp 18 07/28/19 04:00 BP 116/82 07/28/19 04:00 Pulse Ox 97 07/28/19 04:00 Intake & Output 07/27/19 07/28/19 07/28/19 18:59 06:59 18:59 Intake Total 1007 30 Output Total 344 375 Balance 663 -345 Weight 81.4 kg Intake: IV 30 30 Invasive Line 1 30 30 Oral 977 Output: Chest Tube Drainage 344 100 Chest Tube Right Lateral 344 100 Chest Urine 275 Other: Voiding Method Urinal Urinal - Constitutional General appearance: Present: average body habitus, cooperative, no acute di stress - Respiratory Details: Lung sounds diminished to the bilateral bases right greater than left. Respirations are symmetrical and nonlabored. Oxygen saturation is 97% on room air. Achieving 500-750 mL on his incentive spirometry. Right pleural chest t ube remains in place to water seal draining thin serosanguineous drainage. No air leak is present. 100 mL output in the last 8 hours, 320 mL output in the last 24 hours. - Cardiovascular Details: Regular rhythm and rate. S1 and S2 present, negative for S3, gallop or murmur. No edema present. Knee-high sequential compression devices in place his bilater al lower extremities. - Gastrointestinal Gastrointestinal Comment(s): Abdomen is soft, nontender and nondistended. Active bowel sounds present in all 4 abdominal quadrants. No guarding or rigidity. No organomegaly appreciated. Tolerating oral intake. Passing flatus. - Genitourinary Genitourinary Comment(s): Voiding clear yellow urine. - Integumentary Integumentary Comment(s): Skin is warm and dry. No clubbing or cyanosis is present. Right chest incisions clean, dry and approximated. Dressings are clean and dry. - Neurologic Neurologic: Present: CNII-XII intact - Musculoskeletal Musculoskeletal: Present: gait normal, generalized weakness, strength equal bilaterally - Psychiatric Psychiatric: Present: A&O x's 3, appropriate affect, intact judgment & insight - Allied health notes Allied health notes reviewed: nursing - Labs CBC & Chem 7: 07/28/19 06:50 07/28/19 06:50 Labs: Abnormal Lab Results - Last 24 Hours (Table) 07/28/19 07/28/19 Range/Units 06:50 06:50 WBC 13.6 H (3.8-10.6) k/uL Sodium 130 L (137-145) mmol/L Glucose 117 H (74-99) mg/dL - Imaging and Cardiology Chest x-ray: report reviewed, image reviewed Assessment and Plan Assessment: 1. Lung mass right lower lobe, consistent with carcinoma, status post robotic- assisted thoracoscopic right lower lobectomy 2. Current tobacco dependence 3. COPD 4. Osteoarthritis 5. Cervical disk disease status post-cervical fusion 6. Posttraumatic stress syndrome from the Plan: 1. Remove right pleural chest tube. 2. Repeat CXR in AM. If stable, will dc to home tomorrow 3. Encourage incentive spirometry 10 times every hour while awake. 4. Increase activity, encourage ambulation as tolerated. 5. Bronchodilators per pulmonology management. 6. Continue GI/DVT prophylaxis. 7. Pain control with current medication regimen. 8. Continue to encourage importance of smoking cessation. 9. Continue to follow up on surgical pathology results. 10. More recommendations to follow based on patient's clinical course Time with Patient: Greater than 30
[2019-07-28] MEDS ORDERED: traMADol 50 MG TAB PO PRN (14:24)
--- NOTE | 2019-07-28 16:10 | P.PN ---
Subjective Progress Note Date: 07/28/19 Principal diagnosis: Right lower lobe resection with mediastinal lymph node dissection. Postoperative day #2 The patient is seen today 07/28/2019 in follow-up on the selective care unit. He is currently sitting up in the bedside. Awake and alert in no acute distress. Maintaining O2 saturation in the low 90s on room air. Afebrile. Hemodynamically stable. White count 13.6. Hemoglobin 13.0. Creatinine 0.77. His pain is well controlled. He is working well with the incentive spirometer. Chest x-ray shows increasing left basilar atelectasis and right basilar airspace disease. Suspect atelectasis versus pneumonia. Objective - Vital Signs Vital signs: Vital Signs Temp 98.2 F 07/28/19 12:00 Pulse 101 H 07/28/19 16:03 Resp 18 07/28/19 16:03 BP 161/88 07/28/19 12:00 Pulse Ox 90 L 07/28/19 12:00 Intake & Output 07/27/19 07/28/19 07/28/19 18:59 06:59 18:59 Intake Total 1007 30 330 Output Total 344 375 Balance 663 -345 330 Weight 81.4 kg Intake: IV 30 30 Invasive Line 1 30 30 Oral 977 330 Output: Chest Tube Drainage 344 100 Chest Tube Right Lateral 344 100 Chest Urine 275 Other: Voiding Method Urinal Urinal Urinal # Voids 3 - Exam Very pleasant 58-year-old male patient appeared well nourished and normally developed. Vital signs as documented. Head exam is unremarkable. No scleral icterus or corneal arcus noted. Neck is without jugular venous distension, thyromegaly, or carotid bruits. Carotid upstrokes are brisk bilaterally. Lungs are diminished breath on the right compared to the left, with few scattered rhonchi and the chest tube are in place. Cardiac exam reveals the PMI to be normally sized and situated. Rhythm is regular. First and second heart sounds normal. No murmurs, rubs or gallops. Abdominal exam reveals normal bowel sounds, no masses, no organomegaly and no aortic enlargement. Extremities are nonedematous and both femoral and pedal pulses are normal.Examination of the skin revealed no evidence of significant rashes, suspicious appearing nevi or other concerning lesions. Neurologically awake and alert and is no focal neur ological deficit. - Labs CBC & Chem 7: 03/14/20 06:50 07/28/19 06:50 Labs: Abnormal Lab Results - Last 24 Hours (Table) 07/28/19 07/28/19 Range/Units 06:50 06:50 WBC 13.6 H (3.8-10.6) k/uL Sodium 130 L (137-145) mmol/L Glucose 117 H (74-99) mg/dL Assessment and Plan Assessment: 1 Right lower lobe mass close robotic-assisted right lower lobe resection with mediastinal lymph node dissection, postoperative day #2. The patient is calm and comfortable and the patient is under good control and the patient has a right-sided chest tube in place. The chest x-ray from today shows no evidence of any air leak and the chest tube is in a good location. Consider underlying lung cancer, pathology pending 2 spinal stenosis 3 osteoarthritis Plan Seen and evaluated by Dr. Bolden Chest x-ray reviewed, chest tube to be removed Continue current plan Continue incentive spirometer Probable discharge in a.m. I, the cosigning physician, performed a history & physical examination of the patient. Lungs sounds with crackles scattered rhonchi, more so on the right. Maintaining good O2 saturations in the 90s on room air. I discussed the ass essment and plan of care with my nurse practitioner, Teressa Echevarria. I attest to the above note as dictated by her.
[2019-07-29] MEDS: KETOROLAC 30 MG/ML 1 ML VIAL IVP SCH ×2 (00:48→06:49)
[2019-07-29] MEDS: HEPARIN SODIUM,PORCINE 5,000 UNIT/ML 1 ML VIAL SQ SCH ×2 (00:48→08:03)
[2019-07-29] MEDS: PANTOPRAZOLE 40 MG TABLET PO SCH (06:49)
[2019-07-29 06:55] VITALS: TEMP 98.1
--- NOTE | 2019-07-29 07:53 | XR ---
EXAMINATION TYPE: XR chest 2V DATE OF EXAM: 07/29/2019 COMPARISON: 07/28/2019 TECHNIQUE: PA and lateral views submitted. HISTORY: Post lobectomy FINDINGS: Stable left basilar linear atelectasis is seen. Increasing right basilar airspace disease. Right thor acostomy tube has been removed. Right-sided chest wall subcutaneous emphysema has increased. Cervical fusion device is seen. Cardiomediastinal silhouette is nonenlarged. Hypertrophic change of the spine . Areas of consolidation and pleural effusion are stable.. IMPRESSION: 1. Chest tube removal with no sizable pneumothorax. Bilateral areas of consolidation and right pleura l effusion are stable..
[2019-07-29 08:03] VITALS: BP 132/72; RESP 18
[2019-07-29] MEDS: AMITRIPTYLINE HCL 25 MG TAB PO SCH (08:03)
[2019-07-29] MEDS: GABAPENTIN 300 MG CAP PO SCH (08:03)
[2019-07-29] MEDS: IPRATROPIUM-ALBUTEROL 3 ML NEB IH SCH ×2 (08:16→11:24)
[2019-07-29] MEDS ORDERED: METOPROLOL TARTRATE 12.5 MG TAB PO SCH (09:00)
--- NOTE | 2019-07-29 09:11 | P.PN ---
Subjective Progress Note Date: 07/29/19 Principal diagnosis: Lung mass right lower lobe, consistent with carcinoma. Previous medical history of current tobacco dependence, COPD, osteoarthritis, and cervical disc disease with previous cervical fusion. POD #3 Robotic-assisted thoracoscopic right lower lobectomy with mediastinal lymph node dissection The patient is currently sitting up in a recliner in no acute distress. States post surgical pain is well controlled with current medication regimen. Denies shortness of breath. States he has been ambulatory in the hallway without difficulty. No new concerns. Objective - Vital Signs Vital signs: Vital Signs Temp 98.1 F 07/29/19 08:00 Pulse 100 07/29/19 08:31 Resp 18 07/29/19 08:00 BP 132/72 07/29/19 08:00 Pulse Ox 90 L 07/29/19 08:00 Intake & Output 07/28/19 07/29/19 07/29/19 18:59 06:59 18:59 Intake Total 330 240 Balance 330 240 Weight 79.2 kg Intake: Oral 330 240 Other: Voiding Method Toilet Toilet Urinal Urinal # Voids 3 # Bowel Movements 3 - Constitutional General appearance: Present: cooperative, no acute distress - Respiratory Details: Lungs sounds diminished bilaterally. Respirations even, nonlabored. Currently on room air with oxygen saturation 90%. Able to achieve 1018-0129 mL on his incentive spirometry. Strong cough. - Cardiovascular Details: S1, S2 present. Regular rate and rhythm, sinus rhythm on telemetry. Palpable peripheral pulses bilaterally. No edema present. No calf pain or tenderness noted. - Gastrointestinal Gastrointestinal Comment(s): Abdomen soft, nontender, nondistended. Active bowel sounds present 4 quadrants. Tolerating diet. - Genitourinary Genitourinary Comment(s): Continues to void - Integumentary Integumentary Comment(s): Skin is warm and dry with evidence of good perfusion. Right chest tube site covered with dry intact dressing. - Neurologic Neurologic: Present: CNII-XII intact - Musculoskeletal Musculoskeletal: Present: gait normal, strength equal bilaterally - Psychiatric Psychiatric: Present: A&O x's 3, appropriate affect, intact judgment & insight - Allied health notes Allied health notes reviewed: nursing - Labs CBC & Chem 7: 07/28/19 06:50 07/28/19 06:50 - Imaging and Cardiology Chest x-ray: report reviewed, image reviewed Assessment and Plan Assessment: 1. Lung mass right lower lobe, consistent with carcinoma, status post robotic- assisted thoracoscopic right lower lobectomy 2. Current tobacco dependence 3. COPD 4. Osteoarthritis 5. Cervical disk disease status post-cervical fusion Plan: 1. Encourage incentive spirometry 10 times every hour while awake. 2. Increase activity, encourage ambulation 3. Bronchodilators per pulmonology 4. Pain control with current medication regimen 5. Will discharge to home today. Verbal discharge instructions reviewed with patient. Will call patient tomorrow with follow-up appointments. Our contact information given to patient for any questions or concerns Time with Patient: Greater than 30
[2019-07-29 11:34] VITALS: PULSE 100
--- NOTE | 2019-07-29 11:45 | P.PN ---
Subjective Progress Note Date: 07/29/19 This is a 58-year-old male patient with MS in the right lower lobe. The mass was positive for a CAT scan that was done on outpatient basis. He had no evidence of any metastases based on PET scan.. Bronchoscopy was done and it biopsy was nondiagnostic. Based on that, the patient was brought in for a right lower lobe resection/lobectomy. The patient underwent the surgery without any major complications. Currently is postop day #0. This was a robotic-assisted thoracoscopy and right lower lobe resection with lymph node dissection. Currently his chest x-ray shows no evidence of any pneumothorax. The right- sided chest tube is in a good location. There is no evidence of any air leak. Output from the chest tube has been minimal in the order of 150 mL since he arrived from the operating room. His pain is under good control. His pulse ox is 97% on oxygen at 2 L per minute nasal cannula. Note that the patient had a 2.3 x 1.9 cm right lower lobe mass with a possibility of 4.89 his primary function test was consistent with only a mild obstructive defect. On today's evaluation of 07/27/2019, the patient is looking well. The patient has no specific complaints. The patient is sitting up on a chair. He is postop day #1 following a robotic-assisted thoracoscopic right lower lobe resection. Chest tube is in place. There is no evidence of any air leak. Chest x-ray from today shows no evidence of any pneumothorax. No pulmonary infiltration. The output from the chest tube has been around 80 mL over the past 8 hours and 500 mL since surgery. There is intermittent air leak still noted. On today's evaluation of 07/28/2019 the patient resting comfortably in bed. Chest tube was removed yesterday. The follow-up chest x-ray from today shows no evidence of any pneumothorax. The right lung is well expanded. No evidence of any other complications. There are some atelectatic changes in the left midlung in the right lung basilar area. Surgical wound site is dry clean and intact. He has no respiratory difficulties. He is ambulating. No other comprehensive been noted. Pain is under good control. Objective - Vital Signs Vital signs: Vital Signs Temp 98.1 F 07/29/19 08:00 Pulse 100 07/29/19 11:34 Resp 18 07/29/19 08:00 BP 132/72 07/29/19 08:00 Pulse Ox 90 L 07/29/19 08:00 Intake & Output 07/28/19 07/29/19 07/29/19 18:59 06:59 18:59 Intake Total 330 240 540 Balance 330 240 540 Weight 79.2 kg Intake: Oral 330 240 540 Other: Voiding Method Toilet Toilet Toilet Urinal Urinal # Voids 3 # Bowel Movements 3 - Exam The patient appeared well nourished and normally developed. Vital signs as docu mented. Head exam is unremarkable. No scleral icterus or corneal arcus noted. Neck is without jugular venous distension, thyromegaly, or carotid bruits. Carotid upstrokes are brisk bilaterally. Lungs are diminished breath on the right compared to the left and a left-sided chest tube . has been removed and the patient's surgical incision is dry clean and intact. Cardiac exam reveals the PMI to be normally sized and situated. Rhythm is regular. First and second heart sounds normal. No murmurs, rubs or gallops. Abdominal exam reveals normal bowel sounds, no masses, no organomegaly and no aortic enlargement. Extremities are nonedematous and both femoral and pedal pulses are normal.Examination of the skin revealed no evidence of significant rashes, suspicious appearing nevi or other concerning lesions. Neurologically awake and alert and is no focal neurological deficit. - Labs CBC & Chem 7: 07/28/19 06:50 07/28/19 06:50 Assessment and Plan Plan: 1 Right lower lobe mass close robotic-assisted right lower lobe resection with mediastinal lymph node dissection, postoperative day #2. The right-sided chest tube has been removed. No complications. No pneumothorax. This is likely not intact and the patient is on room air oxygen. He has adequate pain control. 2 spinal stenosis 3 osteoarthritis Plan Continue using incentive spirometer Pain control is adequate Chest x-ray from today was reviewed and there were no complications Discharge home today to be followed up on outpatient basis by Dr. Terry
--- NOTE | 2019-07-29 12:37 | P.DS ---
Providers Date of admission: 07/26/19 09:19 Expected date of discharge: 07/29/19 Attending physician: Tommy Bruno Consults: 07/26/19 16:26 Consult Physician Routine Consulting Provider: Javier Bolden Consult Reason/Comments: post lobectomy Do you want consulting provider notified?: Yes Primary care physician: [facility] Hospital Course: FINAL DIAGNOSIS: 1. Lung mass right lower lobe consistent with carcinoma, pathology pending 2. Current tobacco dependence 3. COPD 4. Osteoarthritis 5. Cervical disc disease with previous cervical fusion PRINCIPAL PROCEDURE: 1. Robotic assisted thoracoscopic right lower lobectomy and mediastinal lymph node dissection HISTORY OF PRESENT ILLNESS: This is a 58-year-old gentleman who follows on an outpatient basis with Dr. Jeremy Terry. He was found to have a 2.8 cm mass in the right lower lobe which was PET positive, the PET did not demonstrate any evidence of metastasis. Pulmonary function was completed and were consistent with mild obstructive defect. He had undergone bronchoscopy which was nondiagnostic. Subsequently the patient was referred to Dr. Bruno from cardiothoracic surgery. Due to high suspicion for carcinoma he was given the options of needle biopsy, wedge resection, or lobectomy. The patient chose to undergo robotic assisted thoracoscopic right lower lobectomy and mediastinal lymph node dissection. The usual perioperative course was discussed in detail with the patient, all risks and benefits were explained, all questions were answered, and consent was obtained to proceed with surgery. The patient was scheduled for surgery after the end of June 2019 per his wishes, he was encouraged to quit smoking in the meantime. HOSPITAL COURSE: The patient was brought to the hospital on 07/26/2019, taken to the preoperative area, prepared in the usual fashion, and subsequently taken to the operating room where Dr. Bruno performed a robotic assisted thoracoscopic right lower lobectomy with mediastinal lymph node dissection. Upon completion of surgery the patient was extubated and taken to the recovery room where he was recovered and monitored hemodynamically. He was eventually admitted to 3 S. cardiac stepdown unit for further monitoring. There was no air leak in her chest tube and [facility] He continued to recover uneventfully and his right pleural chest tube was discontinued on postop day #2. Repeat chest x-ray was stable. His oxygen was titrated down, he was tolerating oral diet, his pain was controlled, and he was ready to be discharged to home on postoperative day #3. He received written and verbal instruction regarding his medications, activity restrictions, signs and symptoms requiring physician notification, and follow-up appointments. COMPLICATIONS: The patient experienced no postoperative complications. Patient Condition at Discharge: Stable Plan - Discharge Summary Discharge Rx Participant: Yes New Discharge Prescriptions: New Acetaminophen Tab [Tylenol] 1,000 mg PO Q6HR PRN tab PRN Reason: Fever And/ Or Pain Continue Gabapentin [Neurontin] 900 mg PO TID Amitriptyline HCl [Elavil] 25 mg PO BID Ibuprofen [Motrin] 800 mg PO Q8H PRN PRN Reason: Pain Discharge Medication List Amitriptyline HCl [Elavil] 25 mg PO BID 05/03/19 [History] Gabapentin [Neurontin] 900 mg PO TID 05/03/19 [History] Ibuprofen [Motrin] 800 mg PO Q8H PRN 07/24/19 [History] Acetaminophen Tab [Tylenol] 1,000 mg PO Q6HR PRN tab 07/29/19 [Rx] Follow up Appointment(s)/Referral(s): Jeremy Terry MD [STAFF PHYSICIAN] - 1 Week Tommy Bruno MD [STAFF PHYSICIAN] - 1 Week [facility] [Primary Care Provider] - 1 Week Patient Instructions/Handouts: Lung Lobectomy (DC) Activity/Diet/Wound Care/Special Instructions: DISCHARGE INSTRUCTIONS: 1. No driving for 2 weeks, or until physician gives their ok. 2. No lifting, pushing, or pulling more than 10 pounds for 2 weeks. The physician will advise of any restriction changes. 3. Continue pain control per as needed orders. Alternate acetaminophen (Tylenol) and ibuprofen (Motrin/Advil) for pain. 4. Continue with incentive spirometry and splinting until otherwise directed by the physician. 5. Leave chest tube dressing for 48 hours. After that, remove all dressings and shower daily. 6. Routine incision care. No powders, lotions, ointments on incisions. 7. Please call surgeon/PROFESSOR OF THEATER for temp greater than 101 F or purulent drainage from incisions. 8. Smoking cessation counseling and program information provided. For any questions or concerns please call nurse practitioners Shelbie at [phone] or Cristo at [phone] Discharge Disposition: HOME SELF-CARE
== END 2019-07-29 12:27 | disposition home or self-care (01) | DRG 164 ==
LOC: 2ORMAIN 09:19 → 3SCARD 16:17
PROVIDERS: ADMIT Thoracic Surgery (Cardiothoracic Vascular Surgery); ATTEND Thoracic Surgery (Cardiothoracic Vascular Surgery)
PROC: 8E0W4CZ Robotic Assisted Procedure of Trunk Region, Percutaneous Endoscopic Approach (ICD-10-PCS; principal; 2019-07-26 10:55)
PROC: 0BTF4ZZ Resection of Right Lower Lung Lobe, Percutaneous Endoscopic Approach (ICD-10-PCS; principal; 2019-07-26 10:55)
PROC: 07T74ZZ Resection of Thorax Lymphatic, Percutaneous Endoscopic Approach (ICD-10-PCS; principal; 2019-07-26 10:55)
DX: C34.31 Malignant neoplasm of lower lobe, right bronchus or lung (principal); J93.82 Other air leak; F17.200 Nicotine dependence, unspecified, uncomplicated; F43.10 Post-traumatic stress disorder, unspecified; J44.9 Chronic obstructive pulmonary disease, unspecified; M19.90 Unspecified osteoarthritis, unspecified site; M48.00 Spinal stenosis, site unspecified; M50.90 Cervical disc disorder, unspecified, unspecified cervical region; Z79.899 Other long term (current) drug therapy; Z98.1 Arthrodesis status
CPT/HCPCS: 71045; 71046; 80048; 85025; 85027; 86850; 86900; 86901; 88305; 88309; 88313; 88331; 88341; 88342; 94640; 94760